=== PATIENT | female | born 1980 | race Caucasian/White ===

== ENCOUNTER 2021-04-14 10:48 | Outpatient (CLI) | payer OTHER, SELFPAY ==
--- NOTE | ~2021-04-14 | MM_ITS ---
EXAMINATION: MM screening esther BI w jostin HISTORY: Screening TECHNIQUE: Craniocaudal and mediolateral oblique 3-D tomosynthesis images were obtained and synthetic 2-D images were generated. CAD analysis was submitted and interpreted. COMPARISON: No prior mammogram is available for comparison at this institution. BREAST PARENCHYMAL COMPOSITION: There are scattered areas of fibroglandular density. FINDINGS: There is no evidence of suspicious mass, calcification, or architectural distortion to sugg est malignancy in either breast. There has been no suspicious interval change. IMPRESSION: 1. No mammographic evidence of malignancy. 2. Recommend routine screening mammography in one year. BI-RADS Category 1: Negative Reviewed, dictated and finalized at location A.
== END 2021-04-14 10:49 | disposition home or self-care (01) ==
LOC: ANHIMG 10:51
PROVIDERS: PCP Family Medicine; Visit Provider Nurse Practitioner Family
DX: Z12.31 Encounter for screening mammogram for malignant neoplasm of breast (principal)
CPT/HCPCS: 77063; 77067

== ENCOUNTER 2021-05-03 13:45 | Outpatient (CLI) | payer OTHER, SELFPAY ==
[2021-05-03 14:03] LABS: Basophils Percent Auto 0.3 % (0.2-1.2); Eosinophils Absolute Auto 0.2 K/mm3 (0-0.3); Eosinophils Percent Auto 1.9 % (0-4.4); Hematocrit 39.5 % (37.0-47.0); Hemoglobin 12.7 g/dL (12.0-15.0); Immature Granulocyte Absolute 0.03 K/mm3 (0.00-0.031); Immature Granulocyte Percent A 0.3 % (0-0.5); Lymphocytes Percent Auto 26.2 % (18.3-44.2); Mean Corpuscular HGB Conc 32.2 g/dl (32-36); Mean Corpuscular Hemoglobin 29.2 pg (26-34); Mean Corpuscular Volume 90.8 fl (80-100); Mean Platelet Volume 10.2 fl (7.4-10.4); Monocytes Absolute Auto 0.6 K/mm3 (0.1-0.6); Monocytes Percent Auto 5.8 % (2.6-8.5); Neutrophils Absolute Auto 6.3 K/mm3 (1.3-6.7); Neutrophils Percent Auto 65.5 % (45.5-73.1); Platelet Count Result 319 k/mm3 (150-375); Red Blood Count 4.35 M/mm3 (4.2-5.4); Red Cell Distribution Width 12.4 % (11.5-14.5); White Blood Count 9.6 K/mm3 (4.5-10.0)
[2021-05-03 14:23] LABS: Alanine Aminotransferase 18 U/L (4-35); Albumin Level 4.2 g/dL (3.5-5.1); Alkaline Phosphatase 62 U/L (38-126); Anion Gap 8 mmol/L (8-16); Aspartate Amino Transferase 29 U/L (14-36); Blood Urea Nitrogen 13 mg/dL (7-17); Calcium 9.1 mg/dL (8.4-10.2); Carbon Dioxide 24 mmol/L (22-30); Chloride 107 mmol/L (98-107); Cholesterol 204 mg/dL (0-200); Estimated Glomerular Filt Rate > 60; Glucose 80 mg/dL (65-105); HDL Direct 51 mg/dL; Magnesium 1.9 mg/dL (1.6-2.3); Potassium 4.1 mmol/L (3.4-5.0); Sodium 139 mmol/L (137-145); Triglycerides 96 mg/dL (<150)
[2021-05-03 14:27] LABS: Hemoglobin A1C 5.5 % (<5.7)
[2021-05-03 14:31] LABS: LDL Cholesterol Direct 109 mg/dL
[2021-05-03 14:51] LABS: Vitamin D 25 Hydroxy 30.8 ng/mL
== END 2021-05-03 13:46 | disposition home or self-care (01) ==
PROVIDERS: PCP Family Medicine; Visit Provider Nurse Practitioner Family
DX: R53.83 Other fatigue (principal); R20.0 Anesthesia of skin; R20.2 Paresthesia of skin; Z13.29 Encounter for screening for other suspected endocrine disorder; E78.5 Hyperlipidemia, unspecified; R40.0 Somnolence; E16.2 Hypoglycemia, unspecified; Z68.41 Body mass index [BMI] 40.0-44.9, adult
CPT/HCPCS: 36415; 80053; 80061; 82306; 82607; 83036; 83735; 84443; 85025

== ENCOUNTER 2021-07-17 09:04 | Outpatient (CLI) | payer BC, SELFPAY ==
--- NOTE | 2021-07-17 11:00 | NEURO_ITS ---
Impression: # Complains of numbness of right upper extremity. # Right mild/early Carpal Tunnel Syndrome. 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 # Normal needle/EMG exam. Nerve Conduction Studies Anti Sensory Summary Table Stim Site NR Peak (ms) P-T Amp (?V) Site1 Site2 Delta-P (ms) Dist (cm) Heladio (m/s) Left Median Anti Sensory (2-3nd Digit) Wrist 3.1 69.2 Wrist 2-3nd Digit 3.1 14.0 45 Wrist 3.2 47.7 Wrist 2-3nd Digit 3.1 14.0 45 Right Median Anti Sensory (2-3nd Digit) Wrist 3.5 58.9 Wrist 2-3nd Digit 3.5 14.0 40 Wrist 3.6 74.0 Wrist 2-3nd Digit 3.5 14.0 40 Left Radial Anti Sensory (Base 1st Digit) Wrist 1.7 32.9 Wrist Base 1st Digit 1.7 0.0 Right Radial Anti Sensory (Base 1st Digit) Wrist 2.3 17.4 Wrist Base 1st Digit 2.3 0.0 Left Ulnar Anti Sensory (5th Digit) Wrist 2.5 71.0 Wrist 5th Digit 2.5 14.0 56 Right Ulnar Anti Sensory (5th Digit) Wrist 2.5 36.3 Wrist 5th Digit 2.5 14.0 56 Motor Summary Table Stim Site NR Onset (ms) O-P Amp (mV) Site1 Site2 Delta-0 (ms) Dist (cm) Heladio (m/s) Left Median Motor (Abd Poll Brev) Wrist 3.0 3.8 Elbow Wrist 4.7 28.0 60 Elbow 7.7 1.8 Right Median Motor (Abd Poll Brev) Wrist 3.8 5.4 Elbow Wrist 4.6 28.0 61 Elbow 8.4 5.0 Left Ulnar Motor (Abd Dig Minimi) Wrist 2.3 6.3 A Elbow Wrist 4.6 27.0 59 A Elbow 6.9 5.4 B Elbow Wrist 4.2 25.0 60 B Elbow 6.5 4.8 Right Ulnar Motor (Abd Dig Minimi) Wrist 2.8 5.3 A Elbow Wrist 5.8 29.0 50 A Elbow 8.6 4.4 B Elbow Wrist 3.8 22.0 58 B Elbow 6.6 4.9 F Wave Studies NR F-Lat (ms) L-R F-Lat (ms) Left Median (Mrkrs) (Abd Poll Brev) 28.43 0.06 Right Median (Mrkrs) (Abd Poll Brev) 28.36 0.06 Left Ulnar (Mrkrs) (Abd Dig Min) 27.50 0.34 Right Ulnar (Mrkrs) (Abd Dig Min) 27.84 0.34 EMG Side Muscle Nerve Root Ins Act Fibs Amp Dur Recrt Comment Right 1stDorInt Ulnar C8-T1 Nml Nml Nml Nml Nml Right Ext Indicis Radial (Post Int) C7-8 Nml Nml Nml Nml Nml Right Ext Digitorum Radial (Post Int) C7-8 Nml Nml Nml Nml Nml Right BrachioRad Radial C5-6 Nml Nml Nml Nml Nml Right PronatorTeres Median C6-7 Nml Nml Nml Nml Nml Right Abd Poll Brev Median C8-T1 Nml Nml Nml Nml Nml Left 1stDorInt Ulnar C8-T1 Nml Nml Nml Nml Nml Left Ext Indicis Radial (Post Int) C7-8 Nml Nml Nml Nml Nml Left Ext Digitorum Radial (Post Int) C7-8 Nml Nml Nml Nml Nml Left BrachioRad Radial C5-6 Nml Nml Nml Nml Nml Left PronatorTeres Median C6-7 Nml Nml Nml Nml Nml Left Abd Poll Brev Median C8-T1 Nml Nml Nml Nml Nml Right ABD Dig Min Ulnar C8-T1 Nml Nml Nml Nml Nml Left ABD Dig Min Ulnar C8-T1 Nml Nml Nml Nml Nml MTDD
== END 2021-07-17 09:05 | disposition home or self-care (01) ==
PROVIDERS: PCP Family Medicine; Visit Provider Nurse Practitioner Family
DX: R20.2 Paresthesia of skin (principal); G56.01 Carpal tunnel syndrome, right upper limb; G56.21 Lesion of ulnar nerve, right upper limb
CPT/HCPCS: 95886; 95911

== ENCOUNTER 2023-01-01 08:54 | Outpatient (CLI) | payer BC, SELFPAY ==
[2023-01-01 09:24] LABS: Basophils Percent Auto 0.5 % (0.2-1.2); Eosinophils Absolute Auto 0.2 K/mm3 (0-0.3); Eosinophils Percent Auto 2.4 % (0-4.4); Hematocrit 39.3 % (37.0-47.0); Hemoglobin 12.7 g/dL (12.0-15.0); Immature Granulocyte Absolute 0.02 K/mm3 (0.00-0.031); Immature Granulocyte Percent A 0.2 % (0-0.5); Lymphocytes Absolute Auto 2.18 K/mm3 (0.9-3.2); Lymphocytes Percent Auto 25.7 % (18.3-44.2); Mean Corpuscular HGB Conc 32.3 g/dl (32-36); Mean Corpuscular Hemoglobin 28.9 pg (26-34); Mean Corpuscular Volume 89.3 fl (80-100); Mean Platelet Volume 10.3 fl (7.4-10.4); Monocytes Absolute Auto 0.5 K/mm3 (0.1-0.6); Monocytes Percent Auto 5.9 % (2.6-8.5); Neutrophils Absolute Auto 5.5 K/mm3 (1.3-6.7); Neutrophils Percent Auto 65.3 % (45.5-73.1); Platelet Count Result 298 k/mm3 (150-375); Red Cell Distribution Width 12.5 % (11.5-14.5); White Blood Count 8.5 K/mm3 (4.5-10.0)
[2023-01-01 09:34] LABS: Alanine Aminotransferase 18 U/L (6-35); Alkaline Phosphatase 76 U/L (38-126); Anion Gap 5 mmol/L (8-16); Aspartate Amino Transferase 17 U/L (14-36); Bilirubin,Total 0.6 mg/dL (0.2-1.3); Blood Urea Nitrogen 12 mg/dL (7-17); Calcium 8.1 mg/dL (8.4-10.2); Carbon Dioxide 24 mmol/L (22-30); Chloride 106 mmol/L (98-107); Cholesterol 219 mg/dL (0-200); Estimated Glomerular Filt Rate > 60; Glucose 90 mg/dL (65-110); HDL Direct 51 mg/dL; Hemoglobin A1C 5.3 % (<5.7); Sodium 135 mmol/L (137-145); Triglycerides 124 mg/dL (<150)
[2023-01-01 09:44] LABS: LDL Cholesterol Direct 118 mg/dL
[2023-01-01 10:08] LABS: Free T4 Free Thyroxine 0.81 ng/mL (0.78-2.19)
== END 2023-01-01 08:55 | disposition home or self-care (01) ==
LOC: ANHLAB 08:56
PROVIDERS: PCP Family Medicine; Visit Provider Nurse Practitioner Family
DX: R03.0 Elevated blood-pressure reading, without diagnosis of hypertension (principal); R40.0 Somnolence; Z68.41 Body mass index [BMI] 40.0-44.9, adult; R53.83 Other fatigue; E78.5 Hyperlipidemia, unspecified; E16.2 Hypoglycemia, unspecified
CPT/HCPCS: 36415; 80053; 80061; 83036; 84439; 84443; 85025

== ENCOUNTER 2023-06-17 07:44 | Outpatient (CLI) | payer BC, SELFPAY ==
--- NOTE | ~2023-06-17 | MM_ITS ---
EXAMINATION: MM screening esther BI w jostin HISTORY: Screening mammogram TECHNIQUE: Craniocaudal and mediolateral oblique 3-D tomosynthesis images were obtained and synthetic 2-D images were generated. CAD analysis was submitted and interpreted. COMPARISON: 04/14/2021 bilateral screening mammogram BREAST PARENCHYMAL COMPOSITION: The breasts are almost entirely fatty. FINDINGS: There is no evidence of suspicious mass, calcification, or architectural distortion to sugg est malignancy in either breast. There has been no suspicious interval change. IMPRESSION: 1. No mammographic evidence of malignancy. 2. Recommend routine screening mammography in one year. BI-RADS Category 1: Negative Reviewed, dictated and finalized at location A.
== END 2023-06-17 07:45 | disposition home or self-care (01) ==
PROVIDERS: PCP Family Medicine; Visit Provider Obstetrics & Gynecology
DX: Z12.31 Encounter for screening mammogram for malignant neoplasm of breast (principal)
CPT/HCPCS: 77063; 77067

== ENCOUNTER 2023-09-02 09:14 | Outpatient (CLI) | payer BC, SELFPAY ==
[2023-09-02 10:34] LABS: Basophils Absolute Auto 0.1 K/mm3 (0.0-0.1); Eosinophils Absolute Auto 0.2 K/mm3 (0-0.3); Eosinophils Percent Auto 4.4 % (0-4.4); Hematocrit 40.6 % (37.0-47.0); Hemoglobin 12.9 g/dL (12.0-15.0); Immature Granulocyte Absolute 0.01 K/mm3 (0.00-0.031); Immature Granulocyte Percent A 0.2 % (0-0.5); Lymphocytes Absolute Auto 1.22 K/mm3 (0.9-3.2); Lymphocytes Percent Auto 24.5 % (18.3-44.2); Mean Corpuscular HGB Conc 31.8 g/dl (32-36); Mean Corpuscular Hemoglobin 28.9 pg (26-34); Mean Platelet Volume 10.8 fl (7.4-10.4); Monocytes Absolute Auto 0.6 K/mm3 (0.1-0.6); Neutrophils Absolute Auto 2.9 K/mm3 (1.3-6.7); Neutrophils Percent Auto 57.9 % (45.5-73.1); Platelet Count Result 271 k/mm3 (150-375); Red Blood Count 4.46 M/mm3 (4.2-5.4); Red Cell Distribution Width 12.6 % (11.5-14.5)
[2023-09-02 10:50] LABS: Alanine Aminotransferase 18 U/L (6-35); Albumin Level 4.1 g/dL (3.5-5.1); Alkaline Phosphatase 73 U/L (38-126); Amylase 63 U/L (30-110); Anion Gap 5 mmol/L (8-16); Aspartate Amino Transferase 23 U/L (14-36); Bilirubin,Total 0.5 mg/dL (0.2-1.3); Blood Urea Nitrogen 8 mg/dL (7-17); Calcium 8.5 mg/dL (8.4-10.2); Carbon Dioxide 26 mmol/L (22-30); Chloride 103 mmol/L (98-107); Estimated Glomerular Filt Rate > 60; Glucose 91 mg/dL (65-110); Lipase 73 U/L (23-300); Potassium 3.9 mmol/L (3.4-5.0); Sodium 134 mmol/L (137-145)
== END 2023-09-02 09:15 | disposition home or self-care (01) ==
LOC: ANHLAB 09:16
PROVIDERS: PCP Family Medicine; Visit Provider Physician Assistant Medical
DX: R10.13 Epigastric pain (principal)
CPT/HCPCS: 36415; 80053; 82150; 83690; 85025

== ENCOUNTER 2023-09-18 09:11 | Outpatient (CLI) | payer BC, SELFPAY ==
--- NOTE | ~2023-09-18 | US_ITS ---
EXAMINATION: US abdomen complete DATE: 09/18/2023 10:31 INDICATION: Epigastric pain TECHNIQUE: Multiple grayscale and Doppler ultrasound images of the abdomen were obtained. COMPARISON: CT dated 12/28/2016 FINDINGS: The pancreatic head and body are normal in appearance. The pancreatic tail is not visualized. Liver has normal echogenicity and contour, with a smooth surface. No liver lesion identified. No intrahepat ic biliary duct dilation suspected. Portal venous flow was seen in the hepatopetal, normal direction and has normal Doppler waveform. Inferior vena cava and abdominal aorta are normal, the latter measur ing 2.1 cm in maximal diameter. The gallbladder is normal in appearance. There is no cholelithiasis. The common bile duct measures 2-3 mm, which is normal. Sonographic Lopez sign was reported as negat rupali by the cash posting specialist. There is normal renal contour and echogenicity bilaterally. The right kidney measures 10.4 x 4.5 x 6.0 cm and the left 11.9 x 4.9 x 5.0 cm. There are no focal renal lesions iden tified. There is no hydronephrosis. Normal spleen measuring 11.2 cm in maximal length. IMPRESSION: 1. Normal abdominal ultrasound. Reviewed, dictated and finalized at location A.
== END 2023-09-18 09:12 | disposition home or self-care (01) ==
PROVIDERS: PCP Family Medicine; Visit Provider Physician Assistant Medical
DX: R10.13 Epigastric pain (principal)
CPT/HCPCS: 76700

== ENCOUNTER 2025-07-28 09:32 | Emergency (ER) | payer SELFPAY ==
--- OUTSIDE RECORDS SUMMARY | 2007-04-30 10:46 | XMS_ITS | Continuity of Care Document ---
Author Organization [facility] Address [address] [place] [address] Phone Care Team Providers Care Filament Maker Name Role Phone Li OD, Kyle Unavailable Unavailable Procedures Procedure Date Eye Exam Established Pt Advance Directives Directive Yes / No Effective Date File Name No Information Encounters Encounter Description Practice Location Reason(s) For Visit Diagnoses Date Provider Providers Copied on Encounter [facility], [address], [place], [place], [id number], tel:[phone] SEC [facility] No Information 4-200 7 Li OD Kyle. [address] , [address], [place], [address], [place]. tel:[phone] Referring Provider: Simon Platt MD , [address] [place], [address]. tel:[phone] Family History Family Member Type Diagnosis Age At Onset No Information Payers Payer name Insurance type Covered libertarian ID Authoriza tion(s) Medicaid FORMERLY [facility] [id number] Social History Type Description Quantity Date Captured Comments Sex Female Smoking Status No Information Chief Complaint And Reason For Visit No Information Reason For Referral Reason For Referral No Information History Of Present Illness Encounter Date Complaint History Of Prese nt Illness No Information Functional Status Date Functional Assessmen t No Information Instructions Date Instruction Additional Infor mation No Information Assessments Type Assessment Date No Information Patient Care Teams Name Effective Dates (start - stop) Status Members No Information
[2025-07-28] VITALS (8 sets, daily range): BP systolic 155–181; BP diastolic 95–108; PULSE 60–74; RESP 16–20; TEMP 36.2; O2SAT 95–98
[2025-07-28] MEDS: ALPRAZolam (*CRX) 0.5 MG TABLET PO (10:12)
--- NOTE | 2025-07-28 10:17 | ED_ITS ---
HPI - Anxiety General Chief Complaint: Anxiety Stated Complaint: high blood pressure Time Seen by Provider: 07/28/25 09:44 Source: patient Mode of arrival: ambulatory Limitations: no limitations History of Present Illness HPI narrative: this is a 44-year-old female with no significant past medical history was at a job physical and had an elevated blood pressure and presented to the emergency room. Blood pressure is elevated at 181/108 patient states that she has been having increased anxiety and stressors at home with her family situation. There was a mild headache but no nausea vomiting no blurry vision no neurological deficits no chest pain no shortness of breath no abdominal pain. complaint: anxiety Onset (ago): day(s) Severity: moderate Related Data Home Medications ?Medication ?Instructions ?Recorded ?Confirmed ?Last Taken ?Type levonorgestrel (Mirena) 1 device intrauterine ONCE 0 04/03/22 05/26/25 Unknown History Allergies Allergy/AdvReac Type Severity Reaction Status Date / Time No Known Allergies Allergy Verified 05/26/25 07:49 Review of Systems Review of Systems: All systems reviewed & are unremarkable except as noted in HPI and below PMFSH Past Medical History Medical History Encounter for screening examination for sexually transmitted disease Screening mammogram, encounter for Encounter for IUD removal 02/09/18 Mirena removal/reinsertion 06/02/18 Mirena removal/reinsertion Encounter for IUD insertion 01/25/08 Mirena insertion 02/09/18 Mirena removal/reinsertion 06/02/18 Mirena removal/reinsertion Bilateral ankle fractures Wrist fracture, bilateral Abnormal NCS (nerve conduction studies) Surgical History Surgical History History of tonsillectomy (~1989) Family History Family History Grandparent Hypertension Family history of lung cancer maternal grandfather Family history of heart disease in male family member before age 55 Diabetes mellitus Mother Hypertension Family history of diabetes mellitus in first degree relative Family history of malignant neoplasm of ovary Cerebrovascular accident Malignant tumor of ovary Father Alcohol abuse Other Breast cancer maternal aunt Social History Social History Smoking status: Never smoker Second hand tobacco smoke exposure: No Alcohol intake: never Substance use: never Substance use type: does not use Do You Feel Safe in your Home?: Yes Lack of Transportation: YES Lack of Food: Never True Current Housing: I Have Housing Concerned About Future Housing: No Difficulty Paying Gas/Electric Bills: No Difficulty Paying for Meds: No Currently Unemployed: No Education: Associate Degree Difficulty w/ Childcare or Family Care: No Living arrangements: with family Additional living arrangements comments: live with boyfriend and daughter Occupation/Education: occupation Additional occupation/education comments: [employer], [employer] Gender identity (if verbalized by the patient): Female Sexual Orientation (if Verbalized by the Patient): Straight or Heterosexual Exam Const: General: healthy appearing Nutritional Appearance: well nourished Orientation/consciousness: patient oriented x3 Limitations: no limitations HENMT: Face and sinus: normal facial exam Eyes: Conjunctivae: conjunctivae normal Pupils: Equal, round and reactive pupils present EOM: EOMs intact bilaterally Direct Ophthalmoscopy: no photophobia Neck: Neck: normal visual inspection, no lymphadenopathy and no meningeal signs Chest: Chest palpation & inspection: normal inspection of the chest Resp: Effort & Inspection: normal respiratory effort Auscultation: clear to auscultation bilaterally Cardio: Rate: regular rate Rhythm: regular rhythm GI: GI Palp: Yes Soft to palpation Auscultation: normal bowel sounds : General: Yes bladder normal to palpation Skin: General skin exam: normal color Rashes: no rashes Wounds: no wounds Neuro: General: patient oriented x3, moves all extremities, no meningeal signs, no focal motor deficits and CN's II-XI intact bilaterally Cranial nerves: Yes Nystagmus not present Speech: normal speech Extrem: General: normal to inspection, no clubbing, cyanosis or edema and no pedal edema Psych: Affect: Anxious affect present Course Course Emergency Course: Patient with elevated blood pressure and anxiety received a dose of Norvasc 5mg p.o. along with Xanax 0.5mg p.o.. Vital Signs Vital signs: Vital Signs Temperature 36.2 C L 07/28/25 09:32 Pulse Rate 74 07/28/25 09:32 Respiratory Rate 16 07/28/25 09:32 Blood Pressure 155/95 H 07/28/25 09:32 Pulse Oximetry 95 07/28/25 09:32 Oxygen Delivery Room Air 07/28/25 09:32 Temperature 36.2 C L 07/28/25 09:32 Pulse Rate 65 07/28/25 10:01 Respiratory Rate 20 07/28/25 10:01 Blood Pressure 181/108 H 07/28/25 10:01 Pulse Oximetry 97 07/28/25 10:01 Oxygen Delivery Room Air 07/28/25 10:01 Critical Care Time Critical Care Time Critical Care Time: No Discharge Plan Discharge Clinical Impression: Anxiety Hypertension Qualifiers: Hypertension type: unspecified Qualified Code(s): I10 - Essential (primary) hypertension Patient Disposition: Home Condition: Stable Instructions: Antibiotic Form, Hypertension (ED), Anxiety (ED) Additional Instructions: advised patient to take medication as prescribed and to follow with primary care physician within the next 3 to 5 days for further evaluation and treatment. Patient Language: Yakut Prescriptions: New amlodipine [Norvasc] 5 mg tablet 5 mg PO DAILY Qty: 20 0RF alprazolam 0.5 mg tablet 0.5 mg PO BID PRN (Reason: anxiety) Qty: 20 0RF No Action Mirena 20 mcg/24 hours (7 yrs) 52 mg intrauterine device 1 device intrauterine ONCE Rx Instructions: as a single dose triamcinolone acetonide 0.1 % ointment 1 applic topical BID Qty: 80 0RF hydroxyzine HCl 10 mg tablet 10 mg PO TID PRN (Reason: itching) Qty: 30 0RF Follow-up/Referrals: Simon Platt MD [Primary Care Provider, Family Practice]
--- NOTE | 2025-07-28 10:45 | PC.NURSE ---
dr ray in with pt discussing discharge plans
== END 2025-07-28 10:45 | disposition home or self-care (01) ==
PROVIDERS: Emergency Provider Emergency Medicine; PCP Family Medicine
DX: F41.9 Anxiety disorder, unspecified (principal); I10 Essential (primary) hypertension
CPT/HCPCS: 99283; A9270